=== PATIENT | female | born 1960 | race Hispanic/Latino ===

== ENCOUNTER 2022-03-09 14:54 | Emergency (ER) | payer OTHER ==
[~2022-03-09] VITALS: Ht 160 cm; Wt 75.7 kg
[2022-03-09 14:59] VITALS: BP 127/62
[2022-03-09] MEDS ORDERED: OXYC5CAP19 PO (20:40)
[2022-03-09] MEDS ORDERED: IBUP-1493 PO (20:40)
== END 2022-03-09 21:34 | disposition home or self-care (01) ==
LOC: EDH 14:54
DX: S82.832A Other fracture of upper and lower end of left fibula, initial encounter for closed fracture (principal); I10 Essential (primary) hypertension; E78.00 Pure hypercholesterolemia, unspecified; X58.XXXA Exposure to other specified factors, initial encounter; Y93.89 Activity, other specified; Y92.89 Other specified places as the place of occurrence of the external cause; Y99.8 Other external cause status
CPT/HCPCS: 29515; 71045; 73600; 73610